=== PATIENT | male | born 1945 | race Caucasian/White ===

== ENCOUNTER 2017-03-21 12:51 | Day surgery (SDC) | payer MEDICARE ==
[~2017-03-21 12:51] MED LIST: ASPI325T PO; CYAN100017 IM; FERR324T4 PO; FURO1TAB93 PO; FURO20 PO; GABA400C5 PO; ISOS30 PO; LANTUSP SQ; LISI-357 PO; METO50TA PO; MYCO360 PO; NOVOLOGP2 SQ; OMPR20CCR PO; OXYC5 PO; PRAS10TA PO; PRED5PAK PO; RANO500 PO; ROSU40 PO; SENN8.6T15 PO; SYNT88TA PO; TACR5 PO; TEMA30CA PO; VITA400C59 PO; VITA500S PO
[2017-03-21 14:05] VITALS: BP 137/70; PULSE 71; RESP 20; O2SAT 98
[2017-03-21 14:35] VITALS: BP 142/82; PULSE 72; RESP 14; TEMP 98.2; O2SAT 97
[2017-03-21 14:50] VITALS: BP 144/87; PULSE 76; RESP 16; O2SAT 100
--- NOTE | 2017-03-21 15:00 | RADRPT ---
EXAM DATE/TIME: 03/21/2017 13:12 [place] COMPARISON: No previous studies available for comparison. INDICATIONS : Left neck mass. MEDICAL HISTORY : Hypercholesterolemia. Hypertension. Myocardial infarction. Skin cancer. GERD. CAD. DVT, CHF. CKD. Di abetes. End stage renal failure. A. FIb. Hyprothyroidism. SURGICAL HISTORY : Renal transplant. Right shoulder surgery. Cath stent. AV fistula. Eye surgery. hernia repair. Hand rene rgery. ENCOUNTER: Initial ACUITY: 2 weeks PAIN SCORE: 0/10 LOCATION: Left neck. ORGAN: Left lymph node SPECIMENS: Three core specimen(s) submitted for pathologic evaluation. DEVICE: 18 gauge Bio Pince needle Post procedure scanning reveals no hematoma or other complication. The possibility does exist that the tissue obtained will be non-diagnostic. If the sample is non-flaco gnostic a repeat biopsy or surgical biopsy may need to be performed. TECHNIQUE: 1. Ultrasound guidance for needle biopsy. 2. Needle biopsy. The risks, benefits, and alternatives to ultrasound guided needle biopsy were explained to the patien t in detail including the risk of bleeding and infection. Written and verbal informed consent was ob tained. Under direct ultrasound visualization 3,18 gauge cores were obtained of the lymph node left and left neck. The patient tolerated the procedure well and left the ultrasound suite in stable condition. CONCLUSION: Uncomplicated ultrasound guided needle biopsy of left neck lymph node. Brett Cid MD FACR on March 21, 2017 at 14:57 Board Certified Radiologist. This report was verified electronically.
[2017-03-21 15:05] VITALS: BP 141/80; PULSE 74; RESP 16; O2SAT 98
[2017-03-21] MEDS ORDERED: LIDOCAINE HCL 1% PF 30 ML VIAL ONE (15:34)
== END 2017-03-21 15:35 | disposition home or self-care (01) ==
LOC: HRAD 12:51
PROVIDERS: ATTEND Surgery
DX: C96.9 Malignant neoplasm of lymphoid, hematopoietic and related tissue, unspecified (principal); I50.9 Heart failure, unspecified; I13.2 Hypertensive heart and chronic kidney disease with heart failure and with stage 5 chronic kidney disease, or end stage renal disease; N18.6 End stage renal disease; E11.22 Type 2 diabetes mellitus with diabetic chronic kidney disease; I25.2 Old myocardial infarction; E78.00 Pure hypercholesterolemia, unspecified; K21.9 Gastro-esophageal reflux disease without esophagitis; I25.10 Atherosclerotic heart disease of native coronary artery without angina pectoris; I48.91 Unspecified atrial fibrillation; Z86.718 Personal history of other venous thrombosis and embolism
CPT/HCPCS: 38505; 76942; 88305; 88307; 88333

== ENCOUNTER 2017-04-18 15:07 | Emergency (ER) | payer OTHER, MEDICARE ==
[~2017-04-18] VITALS: Ht 167.6 cm; Wt 90.0 kg
[2017-04-18 15:08] VITALS: BP 142/75; PULSE 80; RESP 15; TEMP 98.4; O2SAT 95
--- NOTE | 2017-04-18 15:19 | PD ---
Physical Exam Time Seen by Provider: 15:19 Narrative 72 y/o male here for evaluation of nausea and vomiting for 2 days. [facility] several days regarding a mass on his neck[facility] Vital signs reviewed. Seen at triage desk. Awaiting bed placement. Data Data Last Documented VS Vital Signs Date Time Temp Pulse Resp B/P Pulse Ox O2 Delivery O2 Flow Rate FiO2 04/18/17 15:08 98.4 80 15 142/75 95 MDM Medical Record Reviewed: Yes Supervised Visit with ZAK: Venkata Thurston Apr 18, 2017 15:19
--- NOTE | 2017-04-18 17:08 | PD ---
HPI Chief Complaint: GI Complaint Time Seen by Provider: 17:07 Travel History International Travel<30 days: No Contact w/Intl Traveler<30days: No Traveled to known affect area: No History of Present Illness HPI 72-year-old male presents to the emergency department for evaluation of possible dehydration. The patient had a mass removed from the left side of his neck last week at a [place] [facility]. He was discharged yesterday from the hospital. He started vomiting last night at 6 PM. He hasn't had a pain medication since 3 PM yesterday due to vomiting. Patient has had no intake since 6 PM yesterday. He has history of pacemaker, kidney transplant. He apparently went to the [place] clinic today who referred him to the emergency department for possible dehydration. The patient reports chronic back pain and pain in his left neck. No fevers or chills. No chest pain or shortness of breath. No abdominal pain. No diarrhea or constipation. He does report generalized weakness. PFSH Past Medical History Hx Anticoagulant Therapy: Yes (WARFARIN ) Asthma: No Cancer: Yes (SKIN) Cardiovascular Problems: Yes (PACED) COPD: No Diabetes: Yes Patient Takes Glucophage: No Endocrine: Yes Genitourinary: No Hepatitis: No Hiatal Hernia: No Hypertension: Yes Immune Disorder: No Musculoskeletal: Yes Neurologic: Yes (DIABETIC NEUROPATHY) Psychiatric: No Respiratory: No Thyroid Disease: Yes Past Surgical History Abdominal Surgery: Yes (SEE RENAL) Appendectomy: Yes Body Medical Devices: STENTS, CERVICAL PLATE, PENILE IMPLANT, LEFT FISTULA Cardiac Surgery: Yes (STENTS X4) Endocrine Surgery: No Eye Surgery: Yes (CATARACT LEFT EYE) Genitourinary Surgery: Yes (RENAL TRANSPLANT, PENILE PUMP) Pacemaker: No Thoracic Surgery: No Other Surgery: Yes Social History Alcohol Use: No Tobacco Use: No Substance Use: No Allergies-Medications (Allergen,Severity, Reaction): Coded Allergies: Dilaudid (Verified Allergy, Severe, 04/18/17) Propoxyphene (Verified Allergy, Severe, NAUSEA/VOMITING, 04/18/17) Darvon (Verified Allergy, Mild, SEVERE VOMITTING, 04/18/17) Uncoded Allergies: MORPHINE DERIVATIVES (Allergy, Severe, 01/11/12) Reported Meds & Prescriptions Reported Meds & Active Scripts Active Reported Trazodone (Trazodone HCl) 50 Mg Tab 50 Mg PO HS PRN Tamsulosin (Tamsulosin HCl) 0.4 Mg Cap 0.4 Mg PO HS Prograf (Tacrolimus) 0.5 Mg Cap 0.5 Mg PO Q12HR Sennosides 8.6 Mg Tab 17.2 Mg PO HS Crestor (Rosuvastatin Calcium) 20 Mg Tab 10 Mg PO HS Phenergan (Promethazine HCl) 25 Mg Tablet 12.5 Mg PO Q6H PRN Prednisone 5 Mg Tab 5 Mg PO DAILY Oxycodone (Oxycodone HCl) 5 Mg Tab 5 Mg PO Q6H PRN Zofran (Ondansetron HCl) 4 Mg Tab 4 Mg PO Q6HR PRN Mycophenolic Acid (Mycophenolate Sodium) 360 Mg Tab 720 Mg PO BID Metoprolol Tartrate 50 Mg Tab 25 Mg PO BID Losartan (Losartan Potassium) 50 Mg Tab 25 Mg PO DAILY Levothyroxine (Levothyroxine Sodium) 100 Mcg Tab 100 Mcg PO DAILY Isosorbide Mononitrate ER (Isosorbide Mononitrate) 30 Mg Rojas 30 Mg PO DAILY Ipratropium Neb (Ipratropium Galliano) 0.5 Mg/2.5 Ml Amp 2.5 Ml NEB Q6HR Lantus Solostar Pen Inj (Insulin Glargine) 300 Unit/3 Ml Pen 35 Units SQ HS Novolog Flexpen Inj (Insulin Aspart) 300 Unit/3 Ml Pen 18 Units SQ DAILY WITH SUPPER Novolog Flexpen Inj (Insulin Aspart) 300 Unit/3 Ml Pen 16 Units SQ DAILY WITH LUNCH Novolog Flexpen Inj (Insulin Aspart) 300 Unit/3 Ml Pen 10 Units SQ DAILY WITH BREAKFAST Glucagon Inj 1 Mg/Ml Inj 1 Mg IM ONCE PRN Gabapentin 100 Mg Cap 100 Mg PO HS Gabapentin 100 Mg Cap 300 Mg PO BID Take 3 capsules (300mg) in the morning & midday Lasix (Furosemide) 40 Mg Tab 40 Mg PO DAILY AT 1500 Lasix (Furosemide) 40 Mg Tab 80 Mg PO DAILY IN THE AM Folic Acid 1 Mg Tablet 1 Mg PO DAILY Proscar (Finasteride) 5 Mg Tab 5 Mg PO HS Do not crush. Ferrous Sulfate DR (Ferrous Sulfate) 324 Mg Tabdr 324 Mg PO TID Colace (Docusate Sodium) 100 Mg Capsule 100 Mg PO BID Calcitriol 0.25 Mcg Cap 0.25 Mcg PO MOWEFR Take 1 capsule (0.25mcg) daily on Tuesday,Tuesday and Tuesday Dulcolax DR (Bisacodyl) 5 Mg Tabdr 10 Mg PO DAILY Aspirin Adult Low Strength (Aspirin) 81 Mg Tabdr 81 Mg PO DAILY Ascorbic Acid 500 Mg Tab 500 Mg PO TID Artificial Tears Eye Drops (Dextran 70/Hypromellose) 15 Ml Drops 1 Drop EACH EYE QID PRN Albuterol Neb (Albuterol Sulfate) 2.5 Mg/3 Ml Neb 3 Ml NEB Q6HR Review of Systems Except as stated in HPI: all other systems reviewed are Neg Physical Exam Narrative GENERAL: Well-nourished, well-developed male patient, afebrile. SKIN: Focused skin assessment warm/dry. Patient is a sufficient the left neck without drainage or erythema. ALISON drain is noted which is draining light pink fluid. HEAD: Normocephalic. Atraumatic. EYES: No scleral icterus. No injection or drainage. NECK: Supple, trachea midline. No JVD or lymphadenopathy. CARDIOVASCULAR: Regular rate and rhythm without murmurs, gallops, or rubs. RESPIRATORY: Breath sounds equal bilaterally. No accessory muscle use. Lungs sounds are clear to auscultation. GASTROINTESTINAL: Abdomen soft, non-tender, nondistended. MUSCULOSKELETAL: No cyanosis, or edema. BACK: Nontender without obvious deformity. No CVA tenderness. Data Data Last Documented VS Vital Signs Date Time Temp Pulse Resp B/P Pulse Ox O2 Delivery O2 Flow Rate FiO2 04/18/17 19:07 69 18 154/77 96 Room Air 04/18/17 15:08 98.4 Orders Complete Blood Count With Diff (04/18/17 15:21) Comprehensive Metabolic Panel (04/18/17 15:21) Lipase (04/18/17 15:21) Electrocardiogram (04/18/17 15:21) Magnesium (Mg) (04/18/17 15:21) Sodium Chlor 0.9% 1000 Ml Inj (Ns 1000 M (04/18/17 17:15) Creatine Kinase (Cpk) (04/18/17 17:08) Prothrombin Time / Inr (Pt) (04/18/17 17:08) Act Partial Throm Time (Ptt) (04/18/17 17:08) Ondansetron Inj (Zofran Inj) (04/18/17 17:15) Labs Laboratory Tests Test 04/18/17 17:25 White Blood Count 8.4 TH/MM3 Red Blood Count 4.03 MIL/MM3 Hemoglobin 11.7 GM/DL Hematocrit 35.1 % Mean Corpuscular Volume 87.1 FL Mean Corpuscular Hemoglobin 29.0 PG Mean Corpuscular Hemoglobin 33.2 % Concent Red Cell Distribution Width 16.1 % Platelet Count 179 TH/MM3 Mean Platelet Volume 8.6 FL Neutrophils (%) (Auto) 78.8 % Lymphocytes (%) (Auto) 9.9 % Monocytes (%) (Auto) 9.6 % Eosinophils (%) (Auto) 0.7 % Basophils (%) (Auto) 1.0 % Neutrophils # (Auto) 6.6 TH/MM3 Lymphocytes # (Auto) 0.8 TH/MM3 Monocytes # (Auto) 0.8 TH/MM3 Eosinophils # (Auto) 0.1 TH/MM3 Basophils # (Auto) 0.1 TH/MM3 CBC Comment DIFF FINAL Differential Comment Prothrombin Time 17.1 SEC Prothromb Time International 1.5 RATIO Ratio Activated Partial 29.0 SEC Thromboplast Time Sodium Level 138 MEQ/L Potassium Level 4.2 MEQ/L Chloride Level 102 MEQ/L Carbon Dioxide Level 27.5 MEQ/L Anion Gap 9 MEQ/L Blood Urea Nitrogen 60 MG/DL Creatinine 1.92 MG/DL Estimat Glomerular Filtration 35 ML/MIN Rate Random Glucose 159 MG/DL Calcium Level 8.9 MG/DL Magnesium Level 2.4 MG/DL Total Bilirubin 0.5 MG/DL Aspartate Amino Transf 20 U/L (AST/SGOT) Alanine Aminotransferase 19 U/L (ALT/SGPT) Alkaline Phosphatase 91 U/L Total Creatine Kinase 78 U/L Total Protein 5.7 GM/DL Albumin 2.9 GM/DL Lipase 114 U/L [facility] Medical Decision Making Medical Screen Exam Complete: Yes Emergency Medical Condition: Yes Medical Record Reviewed: Yes Differential Diagnosis Electrolyte abnormality versus dehydration versus acute kidney injury versus postop pain Narrative Course 72-year-old male presents to the emergency department sent by the [place] for possible dehydration. He had surgery last week for a mastectomy from his left neck. He is involving 6 6 PM. He is supposed kidney transplant patient. EKG, CBC, CMP, magnesium, lipase, CK, PTT, PTT/INR are ordered and pending. Patient is given NS 1 L IV bolus, Zofran 4 mg IV. EKG shows electronic ventricular pacemaker, heart rate 75. CBC shows no acute abnormality. CMP shows BUN 60, currently 1.92, glucose 159. Lipase is 114. Magnesium is 2.4. CK is 78. PTT is 29.0. PT/INR is 17.1/1.5. I discussed the case with attending physician, Dr. Quevedo. The patient has had no further episodes of vomiting since being in the emergency department. The patient will be discharged home with a prescription for Zofran. His family member at bedside is agreeable. I encouraged the please return for any acute worsening symptoms and they verbalized agreement and understanding. The patient was discharged in stable condition with instructions, including return instructions and follow up instructions. Diagnosis Primary Impression: Nausea & vomiting Qualified Code: R11.2 - Non-intractable vomiting with nausea, unspecified vomiting type Referrals: Primary Care Physician 1 day Patient Instructions: Acute Nausea and Vomiting (ED), General Instructions Additional Instructions: Take Zofran as instructed as needed for nausea/vomiting. Follow-up with your primary care physician. Return to the emergency department for any acute worsening of symptoms. Med/Other Pt SpecificInfo: Prescription(s) given Scripts Ondansetron Odt 4 Mg Tab4 Mg SL Q6HR PRN (Nausea/Vomiting) #16 TAB Ref 0 Prov:Jada Sheridan 04/18/17 Disposition: 01 DISCHARGE HOME Condition: Stable Jada Sheridan Apr 18, 2017 17:08
[2017-04-18] MEDS ORDERED: SODIUM CHLOR 0.9% 1000 ML INJ 1,000 ML IV ONE (17:15)
[2017-04-18] MEDS ORDERED: ONDANSETRON HCL 4 MG/2 ML VIAL IV PUSH ONE (17:15)
[2017-04-18 18:03] LABS: INTERNATIONAL NORMALIZED RATIO 1.5 RATIO; PROTHROMBIN TIME - PATIENT 17.1 SEC (9.8-11.6)
--- NOTE | 2017-04-18 18:27 | PD ---
Data Data Last Documented VS Vital Signs Date Time Temp Pulse Resp B/P Pulse Ox O2 Delivery O2 Flow Rate FiO2 04/18/17 15:08 98.4 80 15 142/75 95 Orders Complete Blood Count With Diff (04/18/17 15:21) Comprehensive Metabolic Panel (04/18/17 15:21) Lipase (04/18/17 15:21) Electrocardiogram (04/18/17 15:21) Magnesium (Mg) (04/18/17 15:21) Sodium Chlor 0.9% 1000 Ml Inj (Ns 1000 M (04/18/17 17:15) Creatine Kinase (Cpk) (04/18/17 17:08) Prothrombin Time / Inr (Pt) (04/18/17 17:08) Act Partial Throm Time (Ptt) (04/18/17 17:08) Ondansetron Inj (Zofran Inj) (04/18/17 17:15) Labs Laboratory Tests Test 04/18/17 17:25 Prothrombin Time 17.1 SEC Prothromb Time International 1.5 RATIO Ratio Activated Partial 29.0 SEC Thromboplast Time Total Creatine Kinase 78 U/L MDM Supervised Visit with ZAK: Yes Narrative Course The history, exam, and medical decision-making in the associated midlevel provider note were completed with my assistance. I reviewed and agree with the findings presented. I attest that I had a [id number] encounter with the patient on the same day, and personally performed and documented my assessment and findings in the medical record. *My assessment and Findings: This is a 72-year-old male who presents to the emergency department having had a neck mass removed yesterday at the [place]. Patient has a ALISON drain in place. He's been having nausea and vomiting and difficulty keeping food down. Labs will be obtained. He may require observation for hydration and symptomatic control. Jeannine Coles MD Apr 18, 2017 18:27
[2017-04-18 19:07] VITALS: BP 154/77; PULSE 69; RESP 18; O2SAT 96
[2017-04-18 19:08] LABS: ANION GAP 9 MEQ/L (5-15); AST (GOT) 20 U/L (15-37); BICARBONATE 27.5 MEQ/L (21.0-32.0); BLOOD UREA NITROGEN 60 MG/DL (7-18); CHLORIDE 102 MEQ/L (98-107); GLOMERULAR FILTRATION RATE 35 ML/MIN (>89); MAGNESIUM 2.4 MG/DL (1.5-2.5); POTASSIUM 4.2 MEQ/L (3.5-5.1); SODIUM (NA) 138 MEQ/L (136-145)
[2017-04-18 19:12] LABS: ALKALINE PHOSPHATASE 91 U/L (45-117); ALT (GPT) 19 U/L (12-78); TOTAL BILIRUBIN ADULT 0.5 MG/DL (0.2-1.0)
[2017-04-18 19:33] LABS: AUTOMATED NEUTROPHIL # 6.6 TH/MM3 (1.8-7.7); BASOPHIL # 0.1 TH/MM3 (0-0.2); EOSINOPHIL # 0.1 TH/MM3 (0-0.4); EOSINOPHIL % 0.7 % (0.0-4.0); HEMATOCRIT 35.1 % (39.0-51.0); HEMO FLAGS DIFF FINAL; LYMPH % 9.9 % (9.0-44.0); LYMPHOCYTE # 0.8 TH/MM3 (1.0-4.8); MEAN CELL VOLUME 87.1 FL (80.0-100.0); MEAN CORPUSCULAR HGB CONC 33.2 % (32.0-36.0); MONO % 9.6 % (0.0-8.0); NEUT % 78.8 % (16.0-70.0); PLATELET COUNT 179 TH/MM3 (150-450); RED BLOOD COUNT 4.03 MIL/MM3 (4.50-5.90); RED CELL DISTRIBUTION WIDTH 16.1 % (11.6-17.2); WHITE BLOOD COUNT 8.4 TH/MM3 (4.0-11.0)
[2017-04-18] MEDS ORDERED: METO50TA PO (19:46)
[2017-04-18] MEDS ORDERED: TACR0.5 PO (19:46)
[2017-04-18] MEDS ORDERED: SENN8.6T81 PO (19:46)
[2017-04-18] MEDS ORDERED: ROSU20 PO (19:46)
[2017-04-18] MEDS ORDERED: OXYC-392 PO (19:46)
[2017-04-18] MEDS ORDERED: PROS5TAB PO (19:46)
[2017-04-18] MEDS ORDERED: FURO1TAB60 PO ×2 (19:46)
[2017-04-18] MEDS ORDERED: PRED5TAB PO (19:46)
[2017-04-18] MEDS ORDERED: ASPI1TAB91 PO (19:46)
[2017-04-18] MEDS ORDERED: ALBU0.08 NEB (19:46)
[2017-04-18] MEDS ORDERED: GABA100C4 PO ×2 (19:46)
[2017-04-18] MEDS ORDERED: FERR324T4 PO (19:46)
[2017-04-18] MEDS ORDERED: FOLI1TAB6 PO (19:46)
[2017-04-18] MEDS ORDERED: LEVO100T5 PO (19:46)
[2017-04-18] MEDS ORDERED: MYCO1TAB2 PO (19:46)
[2017-04-18] MEDS ORDERED: GLUC0.8I2 IM (19:46)
[2017-04-18] MEDS ORDERED: ZOFR4TAB PO (19:46)
[2017-04-18] MEDS ORDERED: ISOS30TA3 PO (19:46)
[2017-04-18] MEDS ORDERED: DULC5TAB PO (19:46)
[2017-04-18] MEDS ORDERED: LANTINJ SQ (19:46)
[2017-04-18] MEDS ORDERED: CALC0.25 PO (19:46)
[2017-04-18] MEDS ORDERED: TAMS0.4C4 PO (19:46)
[2017-04-18] MEDS ORDERED: ASCO500T PO (19:46)
[2017-04-18] MEDS ORDERED: LOSA50TA PO (19:46)
[2017-04-18] MEDS ORDERED: COLA100C PO (19:46)
[2017-04-18] MEDS ORDERED: IPRA0.02 NEB (19:46)
[2017-04-18] MEDS ORDERED: NOVOINJ3 SQ ×3 (19:46)
[2017-04-18] MEDS ORDERED: ARTISOL EACH EYE (19:46)
[2017-04-18] MEDS ORDERED: PROM25TA10 PO (19:46)
[2017-04-18] MEDS ORDERED: TRAZ50TA12 PO (19:46)
[2017-04-18] MEDS ORDERED: ONDA4TAB7 SL (19:49)
--- NOTE | 2017-04-19 15:10 | EKG ---
Date Performed: 04/18/2017 Time Performed: 16:15:02 PTAGE: 72 years EKG: ELECTRONIC VENTRICULAR PACEMAKER ABNORMAL RHYTHM ECG PREVIOUS TRACING : 10/04/2006 07.55 Pacer is new since prior tracing. DOCTOR: Reyes Fox Interpretating Date/Time 04/19/2017 15:09:14
== END 2017-04-18 20:23 | disposition home or self-care (01) ==
LOC: NEPE 15:07
DX: R11.2 Nausea with vomiting, unspecified (principal); R53.1 Weakness; R94.31 Abnormal electrocardiogram [ECG] [EKG]; E11.9 Type 2 diabetes mellitus without complications; I10 Essential (primary) hypertension; E07.9 Disorder of thyroid, unspecified; Z98.890 Other specified postprocedural states; Z95.0 Presence of cardiac pacemaker; Z94.0 Kidney transplant status; Z79.01 Long term (current) use of anticoagulants; Z79.4 Long term (current) use of insulin; Z86.79 Personal history of other diseases of the circulatory system; Z87.39 Personal history of other diseases of the musculoskeletal system and connective tissue; Z86.69 Personal history of other diseases of the nervous system and sense organs; Z85.828 Personal history of other malignant neoplasm of skin
CPT/HCPCS: 80053; 82550; 83690; 83735; 85025; 85610; 85730; 93005; 96374; 99284; J7030